=== PATIENT | male | born 1975 | race Hispanic/Latino ===

== ENCOUNTER 2019-03-25 21:09 | Emergency (ER) | payer SELFPAY ==
[2019-03-25 21:35] LABS: #Eosinphils 0.3 thou/uL (0.0-0.7); #Lymphocytes 3.7 thou/uL (1.20-3.40); #Monocytes 1.2 thou/uL (0.11-0.59); #Neutrophils 6.7 thou/uL (1.40-6.50); %Basophils 0.5 % (0.0-1.0); %Eosinophils 2.5 % (0.0-10.0); %Lymphocytes 30.6 % (21.0-51.0); %Neutrophils 56.3 % (42.0-75.0); Mean Corpuscular HGB CONC 33.5 g/dL (32.0-36.0); Mean Corpuscular Hemoglobin 29.5 pg (27.0-31.0); Mean Corpuscular Volume 88.1 fL (78.0-98.0); Mean Platelet Volume 9.2 fL (7.4-10.4); Platelet Count 186 thou/uL (130-400); RBC Distribution Width 12.1 % (11.5-14.5); Red Blood Cell (RBC) Count 4.75 mill/uL (4.70-6.10); White Blood Cell (WBC) Count 11.9 thou/uL (4.8-10.8)
[2019-03-25 21:36] LABS: #Basophils 0.1 thou/uL (0.0-0.2)
[2019-03-25 21:54] LABS: ALT (SGPT) 22 U/L (8-55); AST (SGOT) 15 U/L (5-34); Albumin 3.9 g/dL (3.5-5.0); Alkaline Phosphatase 92 U/L (40-150); Anion Gap 17 mmol/L (10-20); BUN (Urea Nitrogen) 14 mg/dL (8.9-20.6); Bilirubin, Total 0.2 mg/dL (0.2-1.2); Calc. Creatinine Clearance 0 mL/min (70-130); Calcium 9.3 mg/dL (7.8-10.44); Carbon Dioxide 19 mmol/L (22-29); Chloride 105 mmol/L (98-107); Estimated GFR-MDRD Greater than 90; Globulin 3.1 g/dL (2.4-3.5); Glucose 143 mg/dL (70-105); Potassium 4.1 mmol/L (3.5-5.1); Sodium 137 mmol/L (136-145)
[2019-03-25 23:27] LABS: CK (CPK) 169 U/L (30-200); Lipase 25 U/L (8-78)
[2019-03-25] MEDS ORDERED: Aspirin Chewable 81 MG TAB ONE (23:39)
--- NOTE | 2019-03-25 23:54 | RAD ---
EXAM: CHEST ONE VIEW HISTORY: Chest pain for one day COMPARISON: None FINDINGS: The cardiac silhouette and pulmonary vasculature is within normal limits. There is mild increased den sity in the left suprahilar region, but this is most likely related to superimposition of vascular structures and prominence of the anterior first rib ending. However, there is concern for pneumonitis follow-up PA and lateral chest x-ray is recommended.. The osseous structures are intact. IMPRESSION: Mild increased density in the left suprahilar region which is most likely attributable to superimposi tion of structures. However, if there is clinical concern for pneumonia, a follow-up PA and lateral chest x-ray is recommended.
[2019-03-26 00:18] LABS: Medtox Reader # READER 4; THC/Cannabinoid Screen Detected (NotDetected)
[2019-03-26 00:19] LABS: Amphetamine Not Detected (NotDetected); Barbiturates Screen Not Detected (NotDetected); Benzodiazepine Screen Not Detected (NotDetected); Cocaine Metabolite Screen Not Detected (NotDetected); Medtox Control Line Valid? VALID (VALID); Methadone Not Detected (NotDetected); Methamphetamine Not Detected (NotDetected); Opiate Screen Not Detected (NotDetected); Oxycodone Screen Not Detected (NotDetected); Phencyclidine (PCP) Not Detected (NotDetected); Tricyclic Screen Not Detected (NotDetected)
[2019-03-26] MEDS ORDERED: Morphine 2 MG/ML SYRINGE ONE (00:26)
[2019-03-26] MEDS ORDERED: Ketorolac Tromethamine 30 MG/ML VIAL ONE (00:27)
[2019-03-26] MEDS ORDERED: Ondansetron PF 4 MG/2 ML Vial ONE (00:27)
== END 2019-03-26 00:37 | disposition home or self-care (01) ==
LOC: ERS 21:09
DX: R07.89 Other chest pain (principal); I10 Essential (primary) hypertension
CPT/HCPCS: 71045; 80053; 80306; 82550; 83690; 83880; 84484; 85025; 93005; 96374; J1885; J2270; J2405

== ENCOUNTER 2019-06-09 16:07 | Emergency (ER) | payer SELFPAY ==
[2019-06-09] MEDS ORDERED: Ketorolac Tromethamine 30 MG/ML VIAL ONE (16:28)
--- NOTE | 2019-06-09 17:38 | RAD ---
RIGHT KNEE FOUR VIEWS: 06/09/19 HISTORY: Pain following injury. FINDINGS/IMPRESSION: Marked tricompartment arthrosis and degenerative changes with hypertrophic osteophytosis and narrowin g of the medial compartment with a small amount of fluid in the suprapatellar recess without acute fr acture or dislocation. POS: [facility]
--- NOTE | 2019-06-09 17:42 | RAD ---
EXAM: LEFT KNEE FOUR VIEWS: 06/09/19 HISTORY: Pain following an injury. FINDINGS: Hypertrophic osteophytosis changes are noted with prominent narrowing of the medial compartment. 1.1 x 1.6 cm diameter irregular ossification focus which appears to be anteriorly located in the knee li int space. There may be a second somewhat smaller intra-articular body anteriorly as well. No evidenc e for acute fracture or dislocation. IMPRESSION: Osteoarthrosis and degenerative changes. At least one fairly large and possibly a second slightly sma ller intra-articular body which appear to be anteriorly located within the knee joint space. No acute fracture or dislocation. POS: [facility]
== END 2019-06-09 17:59 | disposition home or self-care (01) ==
LOC: ERS 16:07
DX: M25.462 Effusion, left knee (principal); M25.561 Pain in right knee; I10 Essential (primary) hypertension
CPT/HCPCS: 96372; J1885